=== PATIENT | female | born 1945 | race Caucasian/White ===

== ENCOUNTER → 2018-05-06 11:04 | Outpatient (CLI) | payer MEDICARE, OTHER, SELFPAY ==
--- NOTE | 2018-05-06 11:06 | DI.RAD.S_ITS ---
PROCEDURE: FL BARIUM SWALLOW INDICATIONS: dysphagia post complex paraesophageal hernia repair 2009 COMPARISON: [facility], BARIUM SWALLOW, 12/07/2009, 11:17. FINDINGS: Function: There is abnormal esophageal peristalsis with episodic tertiary contractions involving the distal third of the esophagus. A moderate size hiatal hernia is present at the distal esophagus and crossing the EG junction. Episodic spontaneous and elicited moderate gastroesophageal reflux was observed. There is normal transit of a calibrated barium tablet through the esophagus into the stomach. Morphology: Air-contrast images demonstrate normal mucosal morphology. Single contrast views show no esophageal strictures, extrinsic mass effects, or diverticula. IMPRESSION: Moderate-sized hiatal hernia with episodic moderate gastroesophageal reflux in this patient with reported prior hernia repair 2009. The current morphology of the distal esophagus and the esophagogastric junction indicates absence of an intact fundoplication. Dictated by: Kirk Ramos M.D. on 05/06/2018 at 12:48 Approved by: Kirk Ramos M.D. on 05/06/2018 at 12:51
== END ==
PROVIDERS: PCP Podiatrist; Visit Provider Specialist
DX: R13.10 Dysphagia, unspecified (principal); K44.9 Diaphragmatic hernia without obstruction or gangrene; K21.9 Gastro-esophageal reflux disease without esophagitis
CPT/HCPCS: 74220

== ENCOUNTER → 2021-03-24 09:46 | Outpatient (CLI) | payer MEDICARE, OTHER, SELFPAY ==
[2021-03-24 19:03] LABS: Add Manual Diff / Slide Review NO; Basophils Absolute Auto 0 /uL (0-100); Basophils Percent Auto 0.5 % (0-2); Eosinophils Absolute Auto 100 /uL (0-450); Eosinophils Percent Auto 2.8 % (2-4); Hematocrit 40.7 % (36-46); Hemoglobin 13.4 g/dL (12.0-16.0); Lymphocytes Absolute Auto 1600 /uL (1100-4500); Lymphocytes Percent Auto 30.3 % (25-40); Mean Corpuscular Hemoglobin 31.2 PG (26-34); Mean Corpuscular Volume 94.7 fL (80-100); Monocytes Absolute Auto 500 /uL (0-900); Monocytes Percent Auto 8.7 % (3-14); Neutrophils Absolute Auto 3000 /uL (1500-7000); Neutrophils Percent Auto 57.7 % (50-75); Platelet Count 181 X10^3/uL (150-400); Red Blood Cell Count 4.29 X10^6/uL (4.0-5.2); Red Cell Distribution Width 13.6 % (11.6-14.8); White Blood Cell Count 5.2 X10^3/uL (4.5-11.0)
[2021-03-24 19:16] LABS: Alanine Aminotransferase 13 IU/L (<35); Albumin 3.9 g/dL (3.5-5.0); Albumin Globulin Ratio 1.5 (1.0-2.8); Alkaline Phosphatase 94 U/L (38-126); Aspartate Aminotransferase 25 IU/L (14-36); BUN Creatinine Ratio 24.7 (6-22); Bilirubin Total 0.4 mg/dL (0.2-1.3); Blood Urea Nitrogen 18 mg/dL (7-17); Calcium 9.5 mg/dL (8.4-10.2); Carbon Dioxide 29 mmol/L (22-32); Chloride 108 mmol/L (98-107); Cholesterol 254 mg/dL (140-199); Estimated Glomerular Filt Rate > 60.0 mL/min (>60); Globulin 2.6 g/dL (1.7-4.1); Glucose 94 mg/dL (80-110); HDL Cholesterol 60 mg/dL (40-60); HEMOLYSIS < 15 (0-50); LDL Cholesterol Calculated 175 mg/dL (<100); Potassium 4.5 mmol/L (3.4-5.1); Sodium 143 mmol/L (137-145); Total Protein 6.5 g/dL (6.3-8.2); Triglycerides 97 mg/dL (35-150)
[2021-03-24 23:51] LABS: TSH w/ Reflex to FT4 2.89 uIU/mL (0.47-4.68)
== END ==
PROVIDERS: PCP Podiatrist; Visit Provider Family Medicine
DX: E78.5 Hyperlipidemia, unspecified (principal); I10 Essential (primary) hypertension
CPT/HCPCS: 80053; 80061; 84443; 85025

== ENCOUNTER → 2021-10-30 10:35 | Outpatient (CLI) | payer MEDICARE, OTHER, SELFPAY ==
[2021-10-30 22:09] LABS: COVID19 - ORCAS (NP or Nasal) Negative (Negative)
== END ==
PROVIDERS: PCP Family Medicine; Visit Provider Family Medicine
DX: Z20.822 Contact with and (suspected) exposure to COVID-19 (principal)
CPT/HCPCS: U0003

== ENCOUNTER → 2023-03-19 15:12 | Outpatient (CLI) | payer MEDICARE, OTHER, SELFPAY | PROVIDERS: PCP Physician Assistant; Visit Provider Family Medicine | DX: R32 Unspecified urinary incontinence (principal); R39.89 Other symptoms and signs involving the genitourinary system | CPT/HCPCS: 87086 ==

== ENCOUNTER → 2023-04-09 10:27 | Outpatient (CLI) | payer MEDICARE, OTHER, SELFPAY ==
[2023-04-09 20:38] LABS: Add Manual Diff / Slide Review NO; Basophils Absolute Auto 0 /uL (0-100); Basophils Percent Auto 0.5 % (0-2); Eosinophils Absolute Auto 200 /uL (0-450); Eosinophils Percent Auto 3.4 % (2-4); Hematocrit 39.5 % (36-46); Hemoglobin 13.3 g/dL (12.0-16.0); Lymphocytes Absolute Auto 1900 /uL (1100-4500); Lymphocytes Percent Auto 31.5 % (25-40); Mean Corpuscular HGB Conc 33.6 % (30-36); Mean Corpuscular Hemoglobin 31.1 PG (26-34); Mean Corpuscular Volume 92.5 fL (80-100); Monocytes Absolute Auto 500 /uL (0-900); Monocytes Percent Auto 8.5 % (3-14); Neutrophils Absolute Auto 3500 /uL (1500-7000); Neutrophils Percent Auto 56.1 % (50-75); Platelet Count 180 X10^3/uL (150-400); Red Blood Cell Count 4.27 X10^6/uL (4.0-5.2); Red Cell Distribution Width 14.3 % (11.6-14.8); White Blood Cell Count 6.2 X10^3/uL (4.5-11.0)
[2023-04-09 20:40] LABS: Alanine Aminotransferase 18 IU/L (<35); Albumin 4.1 g/dL (3.5-5.0); Albumin Globulin Ratio 1.6 (1.0-2.8); Alkaline Phosphatase 104 U/L (38-126); Aspartate Aminotransferase 26 IU/L (14-36); BUN Creatinine Ratio 17.8 (6-22); Bilirubin Total 0.8 mg/dL (0.2-1.3); Blood Urea Nitrogen 16 mg/dL (7-17); Calcium 9.1 mg/dL (8.4-10.2); Carbon Dioxide 29 mmol/L (22-32); Chloride 106 mmol/L (98-107); Cholesterol 156 mg/dL (140-199); Estimated Glomerular Filt Rate > 60 mL/min (>60); Globulin 2.6 g/dL (1.7-4.1); Glucose 88 mg/dL (80-110); HDL Cholesterol 60 mg/dL (40-60); HEMOLYSIS < 15 (0-50); LDL Cholesterol Calculated 73 mg/dL (<100); Potassium 4.3 mmol/L (3.4-5.1); Sodium 140 mmol/L (137-145); Total Protein 6.7 g/dL (6.3-8.2); Triglycerides 115 mg/dL (35-150)
[2023-04-09 20:45] LABS: NT-proBNP (BNP-Adult 18+) 91 pg/mL (<450)
[2023-04-09 21:07] LABS: Thyroid Stimulating Hormone 3.11 uIU/mL (0.47-4.68)
== END ==
PROVIDERS: PCP Physician Assistant; Visit Provider Family Medicine
DX: I10 Essential (primary) hypertension (principal); R06.00 Dyspnea, unspecified; E78.5 Hyperlipidemia, unspecified; R53.83 Other fatigue
CPT/HCPCS: 80053; 80061; 83880; 84443; 85025

== ENCOUNTER → 2023-04-17 09:42 | Outpatient (CLI) | payer MEDICARE, OTHER, SELFPAY ==
--- NOTE | 2023-04-17 19:53 | DI.NM.S_ITS ---
DATE OF SERVICE: 04/17/2023 PROCEDURE: Pharmacological perfusion study. INDICATIONS: Shortness of breath with underlying hypertension and hyperlipidemia. RADIOPHARMACEUTICAL: 25.5 mCi technetium-99m Myoview IV was injected at stress and 12.2 mCi technetium-99m Myoview IV was injected at rest. CARDIAC STRESS: The patient underwent IV Lexiscan perfusion study under the supervision of an attending staff as per standard protocol. The patient remained hemodynamically stable. Baseline blood pressure 126/78. Baseline rhythm sinus. During stress some nonspecific ST-T changes. No convincing ischemic changes. Rare isolated PVCs. No ventricular tachycardia. Minimal dyspnea. No chest discomfort. RAW DATA: Significant breast shadow seen. There is increased subdiaphragmatic activity affecting the inferior border of the heart as well. GATED STUDY: Stress LV ejection fraction is 69% without any obvious wall motion abnormalities. Resting end-diastolic volume 85 mL. TID ratio 1.09, which is within normal limits. Lung/heart ratio 0.34, which is within normal limits. MYOCARDIAL PERFUSION SCAN: Stress supine, resting supine and stress prone images were compared to each other. Stress supine and resting supine images revealed moderate-size, moderate to severely decreased perfusion of distal inferior wall extending into the distal inferolateral wall and inferior apex. There is a significant improvement during stress prone images. Stress prone images, however, remained showing mildly decreased perfusion of distal inferolateral wall. Significant overall improvement. CONCLUSION: No obvious reversible ischemia. Most likely, this is a normal myocardial perfusion study with evidence of significant diaphragmatic tissue attenuation artifact, as well as breast tissue attenuation artifact, which got significantly improved during stress prone images. Details as stated above. No wall motion abnormalities. Left ventricular function is preserved. There is a large breast shadow as well as increased sub-diaphragmatic activity seen during raw images. Hence overall this is a low-risk study. Jayshree Orantes - BELL CAPTAIN/antoine/ doc#: [id number]/job#: [id number] dd: 04/17/2023 16:38:00 dt: 04/17/2023 19:42:00 DICTATING MD/COPIES TO: Kaylie Black MD COPIES MNE: BE;
== END ==
PROVIDERS: PCP Family Medicine; Referring Provider Family Medicine; Visit Provider Family Medicine
DX: R94.31 Abnormal electrocardiogram [ECG] [EKG] (principal); R06.00 Dyspnea, unspecified; I10 Essential (primary) hypertension; E78.5 Hyperlipidemia, unspecified
CPT/HCPCS: 78452; 93017; A9502; J2785

== ENCOUNTER → 2023-11-04 15:49 | Outpatient (CLI) | payer MEDICARE, OTHER, SELFPAY ==
--- NOTE | 2023-11-04 15:51 | DI.US.S_ITS ---
PROCEDURE: US PERIPH VENOUS LOW EXTREM RT INDICATIONS: RLE PAIN TECHNIQUE: Real-time imaging, as well as color and pulse Doppler interrogation, were performed of the lower extremity deep veins from the inguinal ligament to the popliteal fossa, with documentation of the visualized calf veins. COMPARISON: None. FINDINGS: The common femoral, femoral, popliteal, and the visualized calf veins are normally compressible, and free of intraluminal thrombus. Color and pulse Doppler demonstrate normal phasic intraluminal flow. There is normal augmentation response to distal compression maneuver. IMPRESSION: No findings of right lower extremity deep venous thrombosis. Dictated by: Dereje Orantes M.D. on 11/04/2023 at 16:59 Approved by: Dereje Orantes M.D. on 11/04/2023 at 16:59
== END ==
PROVIDERS: PCP Family Medicine; Referring Provider Physician Assistant Medical; Visit Provider Physician Assistant Medical
DX: M79.661 Pain in right lower leg (principal)
CPT/HCPCS: 93971

== ENCOUNTER → 2023-12-03 11:26 | Outpatient (CLI) | payer MEDICARE, SELFPAY | PROVIDERS: PCP Family Medicine; Referring Provider Family Medicine; Visit Provider Family Medicine | DX: R09.02 Hypoxemia (principal); R06.00 Dyspnea, unspecified | CPT/HCPCS: 94060; 94618; 94726; 94729 ==

== ENCOUNTER → 2024-07-29 10:44 | Outpatient (CLI) | payer MEDICARE, SELFPAY ==
[2024-07-29 19:20] LABS: Add Manual Diff / Slide Review NO; Basophils Absolute Auto 0 /uL (0-100); Basophils Percent Auto 0.7 % (0-2); Eosinophils Absolute Auto 200 /uL (0-450); Eosinophils Percent Auto 3.3 % (2-4); Hematocrit 35.8 % (36-46); Hemoglobin 11.6 g/dL (12.0-16.0); Lymphocytes Absolute Auto 1900 /uL (1100-4500); Lymphocytes Percent Auto 32.7 % (25-40); Mean Corpuscular HGB Conc 32.4 % (30-36); Mean Corpuscular Hemoglobin 26.5 PG (26-34); Mean Corpuscular Volume 81.8 fL (80-100); Monocytes Absolute Auto 500 /uL (0-900); Neutrophils Absolute Auto 3100 /uL (1500-7000); Neutrophils Percent Auto 54.3 % (50-75); Platelet Count 213 X10^3/uL (150-400); Red Blood Cell Count 4.38 X10^6/uL (4.0-5.2); White Blood Cell Count 5.7 X10^3/uL (4.5-11.0)
[2024-07-29 20:02] LABS: Alanine Aminotransferase 15 IU/L (<35); Albumin Globulin Ratio 1.3 (1.0-2.8); Alkaline Phosphatase 89 U/L (38-126); Aspartate Aminotransferase 38 IU/L (14-36); Bilirubin Total 0.5 mg/dL (0.2-1.3); Blood Urea Nitrogen 25 mg/dL (7-17); Calcium 9.5 mg/dL (8.4-10.2); Carbon Dioxide 31 mmol/L (22-32); Chloride 104 mmol/L (98-107); Cholesterol 160 mg/dL (140-199); Estimated Glomerular Filt Rate > 60 mL/min (>60); Globulin 3.1 g/dL (1.7-4.1); Glucose 96 mg/dL (80-110); HDL Cholesterol 61 mg/dL (40-60); HEMOLYSIS < 15 (0-50); LDL Cholesterol Calculated 79 mg/dL (<100); Potassium 3.8 mmol/L (3.4-5.1); Sodium 139 mmol/L (137-145); Total Protein 7.1 g/dL (6.3-8.2); Triglycerides 101 mg/dL (35-150)
[2024-07-29 20:24] LABS: TSH w/ Reflex to FT4 2.95 uIU/mL (0.47-4.68)
== END ==
PROVIDERS: PCP Family Medicine; Visit Provider Family Medicine
DX: I10 Essential (primary) hypertension (principal); R53.83 Other fatigue; G47.10 Hypersomnia, unspecified; R09.02 Hypoxemia; E78.5 Hyperlipidemia, unspecified
CPT/HCPCS: 80053; 80061; 84443; 85025

== ENCOUNTER → 2024-08-25 13:53 | Outpatient (CLI) | payer MEDICARE, SELFPAY ==
[2024-08-25 18:58] LABS: Reticulocyte Count, Percent 1.1 % (1.1-2.6)
[2024-08-25 19:01] LABS: Hematocrit 33.3 % (36-46); Hemoglobin 10.8 g/dL (12.0-16.0); Mean Corpuscular HGB Conc 32.6 % (30-36); Mean Corpuscular Hemoglobin 26.9 PG (26-34); Mean Corpuscular Volume 82.6 fL (80-100); Platelet Count 218 X10^3/uL (150-400); Red Blood Cell Count 4.03 X10^6/uL (4.0-5.2); Red Cell Distribution Width 19.1 % (11.6-14.8); White Blood Cell Count 6.3 X10^3/uL (4.5-11.0)
[2024-08-25 19:35] LABS: Neutrophils Absolute Manual 3276 /uL (3000-5900); Total Cells Counted 100
[2024-08-25 19:40] LABS: RBC Morphology Normal Morphology
[2024-08-25 20:15] LABS: HEMOLYSIS < 15 (0-50); Iron 53 ug/dL (37-170)
[2024-08-25 20:29] LABS: Percent Iron Saturation 13 % (15-50); Total Iron Binding Capacity 400 ug/dL (265-497); Transferrin 321 mg/dL (206-381)
[2024-08-25 20:52] LABS: Ferritin 10 ng/mL (11-264)
[2024-08-25 21:24] LABS: Folate 10.1 ng/mL (2.76-20.0); Vitamin B12 311 pg/mL (239-931)
== END ==
PROVIDERS: PCP Family Medicine; Visit Provider Family Medicine
DX: D64.9 Anemia, unspecified (principal)
CPT/HCPCS: 82607; 82728; 82746; 83540; 83550; 85025; 85045

== ENCOUNTER → 2024-11-24 14:01 | Outpatient (CLI) | payer MEDICARE, OTHER, SELFPAY ==
[2024-11-24 20:16] LABS: Add Manual Diff / Slide Review NO; Basophils Absolute Auto 0 /uL (0-100); Basophils Percent Auto 0.4 % (0-2); Eosinophils Absolute Auto 100 /uL (0-450); Eosinophils Percent Auto 1.8 % (2-4); Hematocrit 39.6 % (36-46); Hemoglobin 13.4 g/dL (12.0-16.0); Lymphocytes Absolute Auto 2200 /uL (1100-4500); Lymphocytes Percent Auto 31.6 % (25-40); Mean Corpuscular HGB Conc 33.9 % (30-36); Mean Corpuscular Hemoglobin 30.6 PG (26-34); Mean Corpuscular Volume 90.2 fL (80-100); Monocytes Absolute Auto 500 /uL (0-900); Monocytes Percent Auto 7.4 % (3-14); Neutrophils Absolute Auto 4100 /uL (1500-7000); Neutrophils Percent Auto 58.8 % (50-75); Platelet Count 204 X10^3/uL (150-400); Red Blood Cell Count 4.39 X10^6/uL (4.0-5.2); Red Cell Distribution Width 18.2 % (11.6-14.8)
== END ==
PROVIDERS: PCP Family Medicine; Visit Provider Internal Medicine Gastroenterology
DX: D50.9 Iron deficiency anemia, unspecified (principal)
CPT/HCPCS: 85025

== ENCOUNTER → 2025-01-28 11:30 | Outpatient (CLI) | payer MEDICARE, OTHER, SELFPAY ==
[2025-01-28 19:22] LABS: HEMOLYSIS < 15 (0-50); Iron 142 ug/dL (37-170)
[2025-01-28 19:24] LABS: Add Manual Diff / Slide Review NO; Basophils Absolute Auto 0 /uL (0-100); Basophils Percent Auto 0.5 % (0-2); Eosinophils Absolute Auto 200 /uL (0-450); Eosinophils Percent Auto 2.9 % (2-4); Hematocrit 41.8 % (36-46); Hemoglobin 14.1 g/dL (12.0-16.0); Lymphocytes Absolute Auto 2000 /uL (1100-4500); Lymphocytes Percent Auto 33.7 % (25-40); Mean Corpuscular HGB Conc 33.6 % (30-36); Mean Corpuscular Hemoglobin 31.3 PG (26-34); Mean Corpuscular Volume 93.2 fL (80-100); Monocytes Absolute Auto 500 /uL (0-900); Monocytes Percent Auto 7.8 % (3-14); Neutrophils Absolute Auto 3300 /uL (1500-7000); Neutrophils Percent Auto 55.1 % (50-75); Platelet Count 179 X10^3/uL (150-400); Red Blood Cell Count 4.48 X10^6/uL (4.0-5.2); Red Cell Distribution Width 13.7 % (11.6-14.8)
[2025-01-28 19:30] LABS: Alanine Aminotransferase 17 IU/L (<35); Albumin 4.2 g/dL (3.5-5.0); Albumin Globulin Ratio 1.7 (1.0-2.8); Alkaline Phosphatase 100 U/L (38-126); Aspartate Aminotransferase 25 IU/L (14-36); BUN Creatinine Ratio 23.9 (6-22); Bilirubin Total 0.7 mg/dL (0.2-1.3); Blood Urea Nitrogen 21 mg/dL (7-17); Calcium 9.5 mg/dL (8.4-10.2); Carbon Dioxide 31 mmol/L (22-32); Chloride 103 mmol/L (98-107); Estimated Glomerular Filt Rate > 60 mL/min (>60); Globulin 2.5 g/dL (1.7-4.1); Glucose 95 mg/dL (80-110); HEMOLYSIS < 15 (0-50); Potassium 3.8 mmol/L (3.4-5.1); Sodium 141 mmol/L (137-145); Total Protein 6.7 g/dL (6.3-8.2)
[2025-01-28 19:34] LABS: Percent Iron Saturation 46 % (15-50); Total Iron Binding Capacity 312 ug/dL (265-497); Transferrin 261 mg/dL (206-381)
[2025-01-28 20:05] LABS: Ferritin 19 ng/mL (11-264)
== END ==
PROVIDERS: PCP Family Medicine; Visit Provider Family Medicine
DX: D64.9 Anemia, unspecified (principal); K44.9 Diaphragmatic hernia without obstruction or gangrene; K29.70 Gastritis, unspecified, without bleeding; K63.5 Polyp of colon
CPT/HCPCS: 80053; 82728; 83540; 83550; 85025

== ENCOUNTER → 2025-09-22 10:30 | Outpatient (CLI) | payer MEDICARE, OTHER, SELFPAY ==
[2025-09-22 20:11] LABS: Ferritin 17 ng/mL (11-264)
== END ==
PROVIDERS: PCP Family Medicine; Visit Provider Family Medicine
DX: D64.9 Anemia, unspecified (principal); E78.5 Hyperlipidemia, unspecified
CPT/HCPCS: 82728; 83721